=== PATIENT | female | born 1950 | race Caucasian/White ===

== ENCOUNTER 2016-10-29 09:18 | Outpatient (CLI) | payer MEDICARE, OTHER ==
[2015-08-19 13:03] VITALS: BP 114/94
[2016-10-29 10:10] LABS: eGFR (African) > 60; eGFR (Non-African) > 60
== END 2016-10-29 09:20 ==
LOC: RAD 09:18
PROVIDERS: ATTEND Family Medicine
DX: E78.5 Hyperlipidemia, unspecified (principal); Z78.0 Asymptomatic menopausal state
CPT/HCPCS: 36415; 77080; 80053; 80061

== ENCOUNTER 2017-03-15 09:30 | Outpatient (CLI) | payer MEDICARE, OTHER ==
[2015-08-19 13:03] VITALS: BP 114/94
[2017-03-15 10:27] LABS: eGFR (African) > 60; eGFR (Non-African) > 60
== END 2017-03-15 09:40 ==
LOC: LAB 09:30
PROVIDERS: ATTEND Family Medicine
DX: E78.2 Mixed hyperlipidemia (principal)
CPT/HCPCS: 36415; 80053; 80061

== ENCOUNTER 2017-11-10 09:40 | Outpatient (CLI) | payer MEDICARE, OTHER ==
[2015-08-19 13:03] VITALS: BP 114/94
[2017-11-10 19:02] LABS: TOTAL PROTEIN 6.7 g/dL (6.0-8.5)
== END 2017-11-10 09:42 ==
LOC: LAB 09:40
PROVIDERS: ATTEND Family Medicine
DX: E78.5 Hyperlipidemia, unspecified (principal)
CPT/HCPCS: 80053; 80061